=== PATIENT | male | born 1990 | race Caucasian/White ===

== ENCOUNTER 2021-03-30 07:23 | Day surgery (SDC) | payer OTHER ==
[2021-03-30] VITALS (7 sets, daily range): BP systolic 108–154; BP diastolic 87–105
[~2021-03-30] VITALS: Ht 172.7 cm; Wt 80.6 kg
[~2021-03-30 07:23] MED LIST: ITRA100C PO; KEN0.1O TP; cefazolin/dext.iso 2gm/100ml IV ONE; famotidine 20mg tablet PO ONE; ringers solution, lacted 1,000 ML IV SCH
[2021-03-30] MEDS ORDERED: bacitracin 15gm ointment TP ONE (07:33)
[2021-03-30] MEDS ORDERED: BUPIVAcaine/PF 2.5mg/ml (0.25%) 10ml vial ONE (07:34)
[2021-03-30] MEDS ORDERED: sevoflurane 250ml liquid IH ONE (08:07)
[2021-03-30] MEDS ORDERED: midazolam 1 mg/ML 2ml injection ONE (08:11)
[2021-03-30] MEDS ORDERED: fentaNYL /PF 50mcg/ml 5ml ampule ONE (08:18)
[2021-03-30] MEDS ORDERED: propofol inj 20 ML IV ONE (08:18)
[2021-03-30] MEDS ORDERED: LIDOcaine 2% (20mg/ml) 5ml vial ONE (08:18)
[2021-03-30] MEDS ORDERED: ketamine 50mg/5ml syringe ONE (08:20)
[2021-03-30] MEDS ORDERED: morphine 2 MG/ML inj. syringe IV PRN (08:25)
[2021-03-30] MEDS ORDERED: morphine 4 MG/ML inj SYRINge IV PRN (08:25)
[2021-03-30] MEDS ORDERED: ringers solution, lacted 1,000 ML IV SCH (08:25)
[2021-03-30] MEDS ORDERED: ondansetron/PF 4mg/2ml inj IV PRN (08:25)
[2021-03-30] MEDS ORDERED: proCHLORperazine 10 MG/2 ml inj IV PRN (08:25)
[2021-03-30] MEDS ORDERED: meperidine/PF 25mg/ml syringe IV PRN ×3 (08:25)
[2021-03-30] MEDS ORDERED: ondansetron/PF 4mg/2ml inj ONE (09:42)
[2021-03-30] MEDS ORDERED: glycopyrrolate 0.2mg/ml inj ONE (09:42)
[2021-03-30] MEDS ORDERED: dexamethasone sod phosphate 4mg/ml inj. ONE (09:42)
[2021-03-30] MEDS ORDERED: acetaminophen 1,000mg/100ml IV 100 ML IV ONE (09:42)
--- NOTE | 2021-03-30 09:58 | NUR ---
ASSUME CARE VSS NO DISTRESS DENIES PAIN. AMBROCIO +CMS TO RIGHT HAND. DRESSING TO RIGHT HAND CDI, CONT IV TO LEFT HAND 20 G INTACT Addendum: 03/30/21 at 1018 by Freida Millan RN Amended: Links added.
--- NOTE | 2021-03-30 10:55 | NUR ---
PT AWAKE ANTONY PO'S VSS STATES PAIN BETTER TO SURG SITE. MEETS CRITERIA TO DC HOME Addendum: 03/30/21 at 1112 by Freida Millan RN Amended: Links added.
== END 2021-03-30 10:58 | disposition home or self-care (01) ==
LOC: PAS 07:23 → EEVIPCON 15:00
PROVIDERS: ATTEND Orthopaedic Surgery
DX: S62.39 Other fracture of other metacarpal bone (principal); Z98.890 Other specified postprocedural states; Z79.899 Other long term (current) drug therapy; X58.XXXD Exposure to other specified factors, subsequent encounter
CPT/HCPCS: 26615; 82948; 93005; C1713; J0131; J1100; J2001; J2175; J2250; J2405; J2704; J3010; J3490; Z7506; Z7508; Z7512; A4618; A6449; A7000; J7120